=== PATIENT | female | born 1950 | race Caucasian/White ===

== ENCOUNTER 2016-05-30 14:51 | Emergency (ER) | payer BC, OTHER ==
[~2016-05-30] VITALS: Ht 160 cm; Wt 88.1 kg
[~2016-05-30 14:51] MED LIST: ARIMIDEX1 MG PO; DILANTIN100 MG PO; FLUTICASONE PRO16 GM BOTH NARES; OCUVITE TABLET1 EACH PO; OMEPRAZOLE20 M2 PO; OS-CAL 500+D C1 EAC1 PO; PHENOBARBITAL64.8 MG PO; PHILLIPS' COLO1 EACH PO; PRILOSEC OTC20 MG PO; PROTONIX40 MG PO; TYLENOL EXTRA500 MG PO; VITAMIN B-6100 MG PO; VITAMIN B6100 MG PO
[2016-05-30] MEDS ORDERED: GAVISCON,GEN1 TABLE1 PO (15:49)
[2016-05-30 16:13] LABS: HEMATOCRIT 43.7 % (36.0-46.0); MCH 30.4 PG (29.0-34.0); MCHC 34.1 G/DL (30.0-36.0); MCV 89.2 FL (83-99); MEAN PLAT.VOLUME 9.3 uM^3 (9.5-12.4); PLATELET COUNT 215 K/uL (156-360); RBC DIS.WIDTH-CV 13.5 % (11.8-14.6); RBC DIS.WIDTH-SD 43.7 % (39-53); WHITE BLOOD COUNT 8.1 K/uL (4.1-10.2)
[2016-05-30 16:30] LABS: CHLORIDE 106 mEq/L (99-109); POTASSIUM 4.4 mEq/L (3.7-5.4); SODIUM 142 mEq/L (136-147)
[2016-05-30 16:31] LABS: GLUCOSE 107 mg/dL (70-99)
[2016-05-30 16:33] LABS: ANION GAP 12 MEQ/L (2-14)
[2016-05-30 16:35] LABS: GFR ESTIMATE (CALCULATED) > 59 mL/min/
[2016-05-30 16:36] LABS: UREA NITROGEN (BUN) 11 mg/dL (9-23)
[2016-05-30 16:39] LABS: TROP-I INTERPRETATION NEGATIVE; TROPONIN-I 0.01 ng/mL (0.0-0.30)
[2016-05-30 18:08] LABS: TROP-I INTERPRETATION NEGATIVE; TROPONIN-I < 0.01 ng/mL (0.0-0.30)
[2016-05-30 19:19] VITALS: BP 141/76
== END 2016-05-30 19:20 | disposition home or self-care (01) ==
LOC: EME 14:51
PROVIDERS: Emergency Medicine
DX: R07.9 Chest pain, unspecified (principal); Z82.49 Family history of ischemic heart disease and other diseases of the circulatory system
CPT/HCPCS: 71020; 80048; 84484; 85027; 93005; 99281; 99284

== ENCOUNTER 2017-01-08 13:17 | Emergency (ER) | payer BC, OTHER ==
[~2017-01-08] VITALS: Ht 165.1 cm; Wt 92.1 kg
[~2017-01-08 13:17] MED LIST changes: +GAVISCON,GEN1 TABLE1 PO
[2017-01-08] MEDS ORDERED: PERCOCET 5/31 TABLET PO (16:20)
[2017-01-08] MEDS ORDERED: ZOFRAN ODT4 MG PO (16:36)
[2017-01-08 17:03] VITALS: BP 144/91
== END 2017-01-08 17:04 | disposition home or self-care (01) ==
LOC: EME 13:17
DX: S52.302A Unspecified fracture of shaft of left radius, initial encounter for closed fracture (principal); S52.612A Displaced fracture of left ulna styloid process, initial encounter for closed fracture; S60.812A Abrasion of left wrist, initial encounter; W01.0XXA Fall on same level from slipping, tripping and stumbling without subsequent striking against object, initial encounter; Y92.512 Supermarket, store or market as the place of occurrence of the external cause; M85.832 Other specified disorders of bone density and structure, left forearm; Z85.3 Personal history of malignant neoplasm of breast; Z90.11 Acquired absence of right breast and nipple
CPT/HCPCS: 73110; 99281; 99284; S0020

== ENCOUNTER 2017-01-29 07:30 | Emergency (ER) | payer OTHER, BC ==
[~2017-01-29] VITALS: Ht 162.6 cm; Wt 91.5 kg
[~2017-01-29 07:30] MED LIST changes: +PERCOCET 5/31 TABLET PO; +ZOFRAN ODT4 MG PO
[2017-01-29 08:36] LABS: MCH 30.3 PG (29.0-34.0); MCHC 33.3 G/DL (30.0-36.0); MCV 90.9 FL (83-99); MEAN PLAT.VOLUME 9.4 uM^3 (9.5-12.4); PLATELET COUNT 187 K/uL (156-360); RBC DIS.WIDTH-CV 12.9 % (11.8-14.6); RBC DIS.WIDTH-SD 42.9 % (39-53); RED BLOOD COUNT 4.62 M/uL (3.80-5.20); WHITE BLOOD COUNT 10.9 K/uL (4.1-10.2)
[2017-01-29 08:49] LABS: PROTHROMBIN TIME 11.2 SEC (10.2-12.9)
[2017-01-29 08:51] LABS: PTT 24.1 SEC (25-37)
[2017-01-29 08:53] LABS: CHLORIDE 105 mEq/L (99-109); POTASSIUM 3.7 mEq/L (3.7-5.4); SODIUM 139 mEq/L (136-147)
[2017-01-29 08:55] LABS: GLUCOSE 123 mg/dL (70-99)
[2017-01-29 08:56] LABS: ANION GAP 10 MEQ/L (2-14)
[2017-01-29 09:00] LABS: UREA NITROGEN (BUN) 15 mg/dL (9-23)
[2017-01-29 09:35] LABS: GFR ESTIMATE (CALCULATED) > 59 mL/min/
[2017-01-29 09:58] VITALS: BP 170/95
== END 2017-01-29 10:00 | disposition home or self-care (01) ==
LOC: EME 07:30
PROVIDERS: Emergency Medicine
DX: R51 Headache (principal); G40.909 Epilepsy, unspecified, not intractable, without status epilepticus; K21.9 Gastro-esophageal reflux disease without esophagitis; Z85.3 Personal history of malignant neoplasm of breast; Z90.10 Acquired absence of unspecified breast and nipple; Z88.8 Allergy status to other drugs, medicaments and biological substances
CPT/HCPCS: 70450; 80048; 85027; 85610; 85730; 99281; 99285; J0780; J1100; J1200; J1885; J7030

== ENCOUNTER 2017-04-23 09:14 | Emergency (ER) | payer OTHER, BC ==
[~2017-04-23] VITALS: Ht 160 cm; Wt 89.3 kg
[2017-04-23] MEDS ORDERED: PRILOSEC20 MG PO (10:03)
[2017-04-23 10:59] LABS: ADD MIUA? YES; BILIRUBIN NEGATIVE; BLOOD SMALL; COLOR AMBER ((YELLOW)); GLUCOSE (STRIP) NEGATIVE; KETONES NEGATIVE; LEUKOCYTES SMALL; NITRITE NEGATIVE; PROTEIN (STRIP) 30; UROBILINOGEN 0.2 MG/DL (0.2-1.0)
[2017-04-23 11:11] LABS: BACTERIA 1+ /HPF; CALCIUM OXALATE CRYSTALS 3+ /HPF; EPITHELIAL CELLS RARE /HPF; MUCUS 4+ /LPF; UCUL ADDED? YES; WHITE BLOOD CELLS 15-20 /HPF (0-5)
[2017-04-23 12:04] LABS: HEMATOCRIT 43.3 % (36.0-46.0); MCH 30.2 PG (29.0-34.0); MCHC 33.9 G/DL (30.0-36.0); MCV 89.1 FL (83-99); MEAN PLAT.VOLUME 9.5 uM^3 (9.5-12.4); PLATELET COUNT 206 K/uL (156-360); RBC DIS.WIDTH-SD 42.8 % (39-53); RED BLOOD COUNT 4.86 M/uL (3.80-5.20)
[2017-04-23 12:12] LABS: INTER. NORMALIZED RATIO 1.1; PROTHROMBIN TIME 12.7 SEC (10.2-12.9)
[2017-04-23 12:14] LABS: CHLORIDE 107 mEq/L (99-109); POTASSIUM 3.6 mEq/L (3.7-5.4); SODIUM 138 mEq/L (136-147)
[2017-04-23 12:15] LABS: PTT 26.5 SEC (25-37)
[2017-04-23 12:17] LABS: GLUCOSE 115 mg/dL (70-99)
[2017-04-23 12:18] LABS: ANION GAP 8 MEQ/L (2-14)
[2017-04-23 12:19] LABS: TOTAL BILIRUBIN 0.6 mg/dL (0.0-1.0)
[2017-04-23 12:20] LABS: ALKALINE PHOSPHATASE 123 IU/L (3-129)
[2017-04-23 12:21] LABS: GFR ESTIMATE (CALCULATED) > 59 mL/min/
[2017-04-23 12:22] LABS: UREA NITROGEN (BUN) 13 mg/dL (9-23)
[2017-04-23 12:24] LABS: LIPASE 7 U/L (1.0-51.0)
[2017-04-23] MEDS ORDERED: FLAGYL500 MG PO (13:45)
[2017-04-23] MEDS ORDERED: CIPRO500 MG PO (13:45)
[2017-04-23 14:31] VITALS: BP 110/97
== END 2017-04-23 14:33 | disposition home or self-care (01) ==
LOC: EME 09:14
PROVIDERS: Emergency Medicine
DX: K52.9 Noninfective gastroenteritis and colitis, unspecified (principal); K21.9 Gastro-esophageal reflux disease without esophagitis; R56.9 Unspecified convulsions; Z85.3 Personal history of malignant neoplasm of breast; Z90.11 Acquired absence of right breast and nipple; Z88.2 Allergy status to sulfonamides; Z88.8 Allergy status to other drugs, medicaments and biological substances
CPT/HCPCS: 74176; 80053; 81003; 83690; 85027; 85610; 85730; 87077; 87086; 87186; 99281; 99284

== ENCOUNTER 2017-11-27 20:25 | Emergency (ER) | payer OTHER ==
[~2017-11-27] VITALS: Ht 160 cm; Wt 86.3 kg
[~2017-11-27 20:25] MED LIST changes: +CIPRO500 MG PO; +FLAGYL500 MG PO; +PRILOSEC20 MG PO
[2017-11-27 21:13] LABS: BASOPHIL (%) 0.7 % (0-1); BASOPHIL COUNT 0.1 K/uL (0-0.1); EOSINOPHIL (%) 1.6 % (0-5); EOSINOPHIL COUNT 0.1 K/uL (0-0.3); HEMATOCRIT 39.3 % (36.0-46.0); HEMOGLOBIN 13.8 G/DL (11.9-15.5); IMMATURE GRANULOCYTE (%) 0.3 % (0.0-0.7); LYMPHOCYTE (%) 31.9 % (15-42); LYMPHOCYTE COUNT 2.2 K/uL (1.0-2.8); MCH 30.7 PG (29.0-34.0); MCHC 35.1 G/DL (30.0-36.0); MCV 87.3 FL (83-99); MONOCYTE (%) 11.4 % (3-12); MONOCYTE COUNT 0.8 K/uL (0-0.8); NEUTROPHIL (%) 54.1 % (45-76); NEUTROPHIL COUNT 3.7 K/uL (1.8-6.4); PLATELET COUNT 205 K/uL (156-360); RBC DIS.WIDTH-CV 12.7 % (11.8-14.6); RBC DIS.WIDTH-SD 40.8 % (39-53); WHITE BLOOD COUNT 6.8 K/uL (4.1-10.2)
[2017-11-27 21:24] LABS: ALBUMIN 3.8 g/dL (3.2-4.8); CHLORIDE 107 mEq/L (99-109); POTASSIUM 3.5 mEq/L (3.7-5.4); SODIUM 141 mEq/L (136-147)
[2017-11-27 21:26] LABS: GLUCOSE 109 mg/dL (70-99); TOTAL PROTEIN 6.9 g/dL (6.4-8.3)
[2017-11-27 21:28] LABS: TOTAL BILIRUBIN 0.3 mg/dL (0.0-1.0)
[2017-11-27 21:30] LABS: ALKALINE PHOSPHATASE 122 IU/L (3-129); CREATININE 0.8 mg/dL (0.6-1.3); GFR ESTIMATE (CALCULATED) > 59 mL/min/
[2017-11-27 21:30] LABS: APPEARANCE CLOUDY ((CLEAR)); BILIRUBIN NEGATIVE; BLOOD NEGATIVE; COLOR YELLOW ((YELLOW)); GLUCOSE (STRIP) NEGATIVE; KETONES NEGATIVE; LEUKOCYTES NEGATIVE; NITRITE NEGATIVE; PROTEIN (STRIP) NEGATIVE; UROBILINOGEN 0.2 MG/DL (0.2-1.0)
[2017-11-27 21:31] LABS: UREA NITROGEN (BUN) 11 mg/dL (9-23)
[2017-11-27 21:32] LABS: AST (GOT) 30 IU/L (2-34)
[2017-11-27 21:33] LABS: ALT (GPT) 34 IU/L (3-49); LIPASE 19 U/L (1.0-51.0)
[2017-11-27 21:35] LABS: BACTERIA RARE /HPF; EPITHELIAL CELLS 3+ /HPF; MUCUS 1+ /LPF; RED BLOOD CELLS 0-5 /HPF (0-5); UCUL ADDED? NO; WHITE BLOOD CELLS 0-5 /HPF (0-5)
[2017-11-27] MEDS ORDERED: FLAGYL500 MG PO (22:56)
[2017-11-27] MEDS ORDERED: CIPRO500 MG PO (22:56)
[2017-11-27 23:21] VITALS: BP 147/78
== END 2017-11-27 23:47 | disposition home or self-care (01) ==
LOC: EME 20:25
PROVIDERS: Emergency Medicine
DX: K52.9 Noninfective gastroenteritis and colitis, unspecified (principal); K21.9 Gastro-esophageal reflux disease without esophagitis; R56.9 Unspecified convulsions; Z90.49 Acquired absence of other specified parts of digestive tract; Z85.3 Personal history of malignant neoplasm of breast; Z90.11 Acquired absence of right breast and nipple; Z88.2 Allergy status to sulfonamides; Z88.1 Allergy status to other antibiotic agents; Z88.8 Allergy status to other drugs, medicaments and biological substances
CPT/HCPCS: 74177; 80053; 81003; 83690; 85025; J7040